=== PATIENT | male | born 1960 | race Caucasian/White ===

== ENCOUNTER 2023-12-01 22:30 | Inpatient (IN) | payer MEDICAID, OTHER ==
[~2023-12-01] VITALS: Ht 177.8 cm; Wt 66.7 kg
[2023-12-01] MEDS ORDERED: QUET50TA PO (23:31)
[2023-12-01] MEDS ORDERED: TRAZ-182 PO (23:32)
[2023-12-01] MEDS ORDERED: HYDR453.3 TP (23:33)
[2023-12-01] MEDS ORDERED: CARB1TAB21 PO (23:34)
[2023-12-01] MEDS ORDERED: ESCI10TA PO (23:36)
[2023-12-02] MEDS ORDERED: MAG HYDROX/AL HYDROX/SIMETH 30 ML UDC PO PRN
[2023-12-02] MEDS ORDERED: MAGNESIUM HYDROXIDE 30 ML UDC PO PRN
[2023-12-02] MEDS ORDERED: TEMAZEPAM 7.5 MG CAPSULE PO PRN
[2023-12-02 01:00] VITALS: BP 134/70; TEMP 98; O2SAT 98
[2023-12-02] MEDS: BLOOD SUGAR DIAGNOSTIC 1 EACH STRIP IN ONE (01:24)
[2023-12-02] MEDS: clonazePAM 0.5 MG TABLET PO PRN (02:07)
[2023-12-02 07:39] LABS: BASOPHILS % (AUTO) 0.3 % (0.0-2.0); EOSINOPHILS % (AUTO) 0.2 % (0.0-6.0); HEMATOCRIT 44 % (39-51); HEMOGLOBIN 14.7 g/dL (13.5-17.5); LYMPHOCYTES # (AUTO) 0.9 K/uL (0.8-4.8); LYMPHOCYTES % (AUTO) 10.6 % (20.0-44.0); MEAN CORPUSCULAR HEMOGLOBIN 29 PG (26.0-33.0); MEAN CORPUSCULAR HGB CONC 33 g/dl (31.0-36.0); MEAN CORPUSCULAR VOLUME 87 fL (80-96); MONOCYTES # (AUTO) 0.6 K/uL (0.1-1.30); MONOCYTES % (AUTO) 8.1 % (2.0-12.0); NEUTROPHILS # (AUTO) 6.5 K/uL (1.8-8.9); NEUTROPHILS % (AUTO) 80.8 % (43.0-81.0); PLATELET COUNT (AUTO) 259 K/uL (150-450); RED CELL DISTRIBUTION WIDTH 13.9 % (11.5-15.0)
[2023-12-02 08:00] VITALS: BP 143/90; TEMP 97.5; O2SAT 97
[2023-12-02 08:00] LABS: CALCIUM, SERUM 9.6 mg/dL (8.5-10.1); POTASSIUM 4.5 mmol/L (3.5-5.1)
[2023-12-02] MEDS: DIVALPROEX SODIUM 500 MG TABLET.DR PO SCH (09:21)
[2023-12-02] MEDS: risperiDONE 1 MG TABLET PO SCH (09:21)
[2023-12-02 16:00] VITALS: BP 129/85; TEMP 98.6; O2SAT 96
[2023-12-03 08:00] VITALS: BP 140/90; TEMP 98.6; O2SAT 96
[2023-12-03] MEDS: CARBIDOPA/LEVODOPA 25/100 MG 1 UDTAB PO SCH (09:00)
[2023-12-03 16:00] VITALS: BP 112/70; TEMP 98.6; O2SAT 96
[2023-12-03] MEDS: Z GUARD REMEDY 4 OZ OINT TP PRN (17:04)
[2023-12-03 20:00] VITALS: BP 129/76; TEMP 98; O2SAT 96
[2023-12-04 08:00] VITALS: BP 123/70; TEMP 97.7; O2SAT 98
[2023-12-04 16:00] VITALS: BP 122/67; TEMP 97.9; O2SAT 98
[2023-12-04 20:31] VITALS: BP 128/80; TEMP 98.1; O2SAT 97
[2023-12-05 08:00] VITALS: BP 154/87; TEMP 97.5; O2SAT 97
[2023-12-05 16:00] VITALS: BP 147/85; TEMP 97.7; O2SAT 98
[2023-12-05 16:19] LABS: ALBUMIN 3.5 g/dL (3.4-5.0); TOTAL PROTEIN, SERUM 7.3 g/dL (6.4-8.2)
[2023-12-05 16:41] LABS: BILIRUBIN,DIRECT 0.2 mg/dL (0.0-0.2)
[2023-12-05] MEDS: OLANZAPINE 2.5 MG TABLET PO SCH (17:38)
[2023-12-05 21:00] VITALS: BP 135/79; TEMP 98.1; O2SAT 97
[2023-12-06 16:00] VITALS: BP 148/81; TEMP 98.7; O2SAT 98
[2023-12-07 08:00] VITALS: BP 123/77; TEMP 98.7; O2SAT 98
[2023-12-07] MEDS: ACETAMINOPHEN 325 MG TABLET PO PRN (09:55)
[2023-12-07 16:00] VITALS: BP 153/86; TEMP 98.7; O2SAT 97
[2023-12-07 21:07] VITALS: BP 133/77; TEMP 98.4; O2SAT 94
[2023-12-08 08:00] VITALS: BP 128/76; TEMP 98.4; O2SAT 90
[2023-12-08 16:00] VITALS: BP 139/78; TEMP 98.2; O2SAT 97
[2023-12-08] MEDS ORDERED: MAGN400O6 PO (19:39)
[2023-12-08] MEDS ORDERED: MAG30ORA PO (19:39)
[2023-12-08] MEDS ORDERED: ACET325T53 PO (19:39)
[2023-12-08] MEDS ORDERED: ALLA266C2 TP (19:39)
[2023-12-08 20:00] VITALS: BP 162/83; TEMP 98.3; O2SAT 96
[2023-12-08] MEDS: OLANZAPINE 2.5 MG TABLET PO SCH (21:16)
== END 2023-12-08 22:26 | disposition short-term general hospital (02) | DRG 751 ==
LOC: GPS 22:58
PROVIDERS: ADMIT Psychiatry & Neurology Psychiatry; ATTEND Internal Medicine
DX: F29 Unspecified psychosis not due to a substance or known physiological condition (principal); F02.82 Dementia in other diseases classified elsewhere, unspecified severity, with psychotic disturbance; G20.A1 Parkinson's disease without dyskinesia, without mention of fluctuations; G31.09 Other frontotemporal neurocognitive disorder; F32.9 Major depressive disorder, single episode, unspecified; F41.1 Generalized anxiety disorder; M20.41 Other hammer toe(s) (acquired), right foot; N40.0 Benign prostatic hyperplasia without lower urinary tract symptoms; Z73.6 Limitation of activities due to disability; S90.414A Abrasion, right lesser toe(s), initial encounter; X58.XXXA Exposure to other specified factors, initial encounter; Y93.9 Activity, unspecified; Y92.89 Other specified places as the place of occurrence of the external cause; G24.9 Dystonia, unspecified; Z91.81 History of falling; F02.84 Dementia in other diseases classified elsewhere, unspecified severity, with anxiety; F02.83 Dementia in other diseases classified elsewhere, unspecified severity, with mood disturbance
CPT/HCPCS: 36415; 80048-TC; 80061-TC; 80076-TC; 80164-TC; 82962-TC; 85025-TC; 87081-TC; 92526; 92611-TC; 97110-TC; 97116-TC; 97530-TC

== ENCOUNTER 2023-12-08 18:51 | Inpatient (IN) | payer MEDICAID ==
[~2023-12-08] VITALS: Ht 177.8 cm; Wt 90.7 kg
[~2023-12-08 18:51] MED LIST: CARB1TAB21 PO; HYDR453.3 TP
[2023-12-08] MEDS ORDERED: ALLA266C2 TP (19:39)
[2023-12-08] MEDS ORDERED: MAGN400O6 PO (19:39)
[2023-12-08] MEDS ORDERED: MAG30ORA PO (19:39)
[2023-12-08] MEDS ORDERED: ACET325T53 PO (19:39)
[2023-12-08 22:40] VITALS: BP 143/81; TEMP 98.6; O2SAT 93
[2023-12-09] MEDS ORDERED: ACETAMINOPHEN 325 MG TABLET PO PRN ×2
[2023-12-09] MEDS ORDERED: HYDROCODONE/APAP 5/325MG TABLET PO PRN
[2023-12-09] MEDS ORDERED: ZOLPIDEM TARTRATE 5 MG TABLET PO PRN
[2023-12-09] MEDS ORDERED: ONDANSETRON HCL/PF 4 MG/2 ML VIAL IVP PRN
[2023-12-09] MEDS ORDERED: MAG HYDROX/AL HYDROX/SIMETH 30 ML UDC PO PRN ×2
[2023-12-09] MEDS ORDERED: Z GUARD REMEDY 4 OZ OINT TP PRN
[2023-12-09] MEDS ORDERED: MAGNESIUM HYDROXIDE 30 ML UDC PO PRN ×2
[2023-12-09] MEDS: IV D5/0.45 NACL 1,000 ML IV PRN (00:17)
[2023-12-09] MEDS: ENOXAPARIN SODIUM 40 MG/0.4 ML DISP.SYRIN SQ SCH (00:21)
[2023-12-09 06:38] LABS: BASOPHILS % (AUTO) 0.1 % (0.0-2.0); HEMATOCRIT 38 % (39-51); HEMOGLOBIN 12.7 g/dL (13.5-17.5); LYMPHOCYTES # (AUTO) 0.8 K/uL (0.8-4.8); LYMPHOCYTES % (AUTO) 3.9 % (20.0-44.0); MEAN CORPUSCULAR HEMOGLOBIN 29 PG (26.0-33.0); MEAN CORPUSCULAR HGB CONC 34 g/dl (31.0-36.0); MEAN CORPUSCULAR VOLUME 87 fL (80-96); MONOCYTES # (AUTO) 2.7 K/uL (0.1-1.30); MONOCYTES % (AUTO) 12.9 % (2.0-12.0); NEUTROPHILS # (AUTO) 17.4 K/uL (1.8-8.9); NEUTROPHILS % (AUTO) 83.1 % (43.0-81.0); PLATELET COUNT (AUTO) 181 K/uL (150-450); RED BLOOD CELL COUNT(AUTO) 4.37 MIL/uL (4.5-6.0); RED CELL DISTRIBUTION WIDTH 13.7 % (11.5-15.0)
[2023-12-09 06:59] LABS: CALCIUM, SERUM 8.8 mg/dL (8.5-10.1); CREATININE 0.9 mg/dL (0.6-1.3); PHOSPHORUS 3.1 mg/dL (2.5-4.9); POTASSIUM 3.5 mmol/L (3.5-5.1)
[2023-12-09] MEDS: PANTOPRAZOLE 40 MG TABLET.DR PO SCH (07:30)
[2023-12-09 08:00] VITALS: BP 121/59; TEMP 99.9; O2SAT 94
[2023-12-09] MEDS: VANCOMYCIN HCL 1.25 GM in IV D5W 250 ML IV ONE (08:49)
[2023-12-09] MEDS ORDERED: CEFEPIME HCL 2 GM in IV D5W 100 ML IV SCH (09:00)
[2023-12-09] MEDS: CARBIDOPA/LEVODOPA 25/100 MG 1 UDTAB PO SCH (09:00)
[2023-12-09] MEDS: OLANZAPINE ZYDIS 5 MG TAB.RAPDIS PO SCH (10:00)
[2023-12-09] MEDS ORDERED: VANCOMYCIN 1 GM in IV D5W 250 ML IV SCH (20:00)
[2023-12-09] MEDS ORDERED: DIVALPROEX SODIUM 125 MG CAP.SPRINK PO SCH (21:00)
== END 2023-12-09 10:40 | DRG 421 ==
LOC: MED 18:51
PROVIDERS: ATTEND Internal Medicine
DX: R62.7 Adult failure to thrive (principal); J96.01 Acute respiratory failure with hypoxia; J69.0 Pneumonitis due to inhalation of food and vomit; R13.10 Dysphagia, unspecified; G20.B1 Parkinson's disease with dyskinesia, without mention of fluctuations; F02.82 Dementia in other diseases classified elsewhere, unspecified severity, with psychotic disturbance; F02.83 Dementia in other diseases classified elsewhere, unspecified severity, with mood disturbance; N40.0 Benign prostatic hyperplasia without lower urinary tract symptoms; F41.1 Generalized anxiety disorder; F02.84 Dementia in other diseases classified elsewhere, unspecified severity, with anxiety; F32.9 Major depressive disorder, single episode, unspecified; Z66 Do not resuscitate; F29 Unspecified psychosis not due to a substance or known physiological condition; G31.09 Other frontotemporal neurocognitive disorder; Z68.28 Body mass index [BMI] 28.0-28.9, adult
CPT/HCPCS: 36415; 71045-TC; 80048-TC; 82962-TC; 83735-TC; 84100-TC; 85025-TC; 87081-TC; 97530-TC; A4223; G0378; J0692; J1650; J3370; J3490; J7060